=== PATIENT | female | born 1945 | race Caucasian/White ===

== ENCOUNTER 2020-10-07 11:39 | Inpatient (IN) | payer MEDICARE ==
[~2020-10-07] VITALS: Ht 170.2 cm; Wt 70.0 kg
[2020-10-07] MEDS ORDERED: AMLO5 PO (13:09)
[2020-10-07] MEDS ORDERED: BENA20 PO (13:10)
[2020-10-07] MEDS ORDERED: Flovent 44 mc10.6 GM INH (13:10)
[2020-10-07] MEDS ORDERED: ZOCOR20 MG PO (13:10)
[2020-10-07] MEDS ORDERED: ASPI81CH PO (13:11)
[2020-10-07 17:29] LABS: International Normalized Ratio 0.98; Prothrombin Time Results 10.6 Sec (9.7-11.5)
--- NOTE | 2020-10-07 20:59 | NUR ---
ADMISSION; PATIENT IS RECIEVED FROM ER VIA STRETCHER ABLE TP TRANSFER TO BED WITH SBA. HEPARIN GTT IS INFUSING AT 20.7 ML/HR. SIGHT IN R AC IS LEAKING. SIGHT REMOVED. HEPARIN INFUSING VIA LFA. NO COMPLAINTS OF PAIN. PATIENT IS ORIENTED TO ROOM AND CALL [facility]SON.
[2020-10-07] MEDS ORDERED: Voltaren100 GM TOP (22:58)
--- NOTE | 2020-10-08 03:00 | NUR ---
HEPARIN GTT: APPT WAS 122.8. PER PHARMACY HEPARIN WAS STOPPED FOR 1 HOUR AND RESTARTED AT 13 U/KG/HR = 17.9 ML/HR.
[2020-10-08 04:55] LABS: Hematocrit 41.6 % (33.0-51.0); Hemoglobin 13.7 g/dL (11.5-16.0); Mean Corpuscular HGB 31.9 pg (26.0-34.0); Mean Corpuscular HGB Conc 32.9 g/dL (31.5-36.5); Mean Corpuscular Volume 97 fL (80-100); Mean Platelet Volume 11.7 fL (9.1-12.4); Platelet Count 208 K/mm3 (150-400); RDW Standard Deviation 46.5 fL (35.1-46.3); White Blood Cell Count 4.71 K/mm3 (4.00-11.30)
--- NOTE | 2020-10-08 05:29 | NUR ---
SHIFT SUMMARY: PATIENT IS A&OX4, UP TO THE BATHROOM WITH STEADY GAIT. NO REPORTS OF PAIN. VSS, BP HAVE COME DOWN CONSIDERABLLY SINCE ER. HEPARIN GTT HAS BEEN DECREASED TO 13 U/KG/HR. IVF INFUSING PER MD ORDER.
[2020-10-08 05:34] LABS: Alanine Aminotransfer (ALT/SGP 21 U/L (12-78); Albumin, Blood 3.5 g/dL (3.4-5.0); Albumin/Globulin Ratio 1.3 (0.8-1.8); Alk Phos 87 U/L (50-136); Anion Gap 1 mmol/L (6-16); Aspartate Aminotrans (AST/SGOT 12 U/L (12-37); Bilirubin, Total 0.5 mg/dL (0.1-1.0); Blood Urea Nitrogen 14 mg/dL (8-24); Bun/Creatinine Ratio 20.1 (12.0-20.0); CO2, Blood 31 mmol/L (21-32); Calcium, Blood 9.5 mg/dL (8.5-10.1); Chloride, Blood 108 mmol/L (98-108); Globulin, Blood 2.7 g/dL (2.2-4.0); Glomerular Filtration Rate >60 (60-); Glucose, Blood 90 mg/dL (70-99); Potassium, Blood 4.3 mmol/L (3.5-5.5); Sodium, Blood 140 mmol/L (136-145); Total Protein, Blood 6.2 g/dL (6.4-8.2)
--- NOTE | 2020-10-08 06:41 | NUR ---
SHIFT SUMMARY: PATIENT IS A&OX4, REPORTING PAIN IN R LEG AND BACK 10/10. MEDICATED PER MAR WITH GOOD EFFECT, IV FENTANYL GIVEN X1 FOR BREAKTHROUGH PAIN. PATIENT REPORTED ITCHING ALL OVER. DR DENT IS NOTIFEID AND ORDER FOR BENADRYL Q 8 H PRN IS OBTAIONED AND MED IS GIVEN WITH FAIR EFFECT.
--- NOTE | 2020-10-08 22:53 | NUR ---
HEPARIN GTT: RESULT OF APPT AT 220 WAS 60.4, THERAPUTIC NO RATE CHANGE OR NEW ORDERS.
[2020-10-09 04:52] LABS: Hematocrit 43.3 % (33.0-51.0); Hemoglobin 14.3 g/dL (11.5-16.0); Mean Corpuscular HGB 31.6 pg (26.0-34.0); Mean Corpuscular Volume 96 fL (80-100); Mean Platelet Volume 11.3 fL (9.1-12.4); Platelet Count 230 K/mm3 (150-400); RDW Coefficient Variation 12.9 % (11.7-14.2); RDW Standard Deviation 45.9 fL (35.1-46.3); Red Blood Cell Count 4.53 M/mm3 (3.80-5.20); White Blood Cell Count 4.22 K/mm3 (4.00-11.30)
[2020-10-09 05:14] LABS: Albumin, Blood 3.7 g/dL (3.4-5.0); Anion Gap 3 mmol/L (6-16); Blood Urea Nitrogen 14 mg/dL (8-24); Bun/Creatinine Ratio 18.1 (12.0-20.0); CO2, Blood 28 mmol/L (21-32); Calcium, Blood 9.4 mg/dL (8.5-10.1); Chloride, Blood 108 mmol/L (98-108); Creatinine, Blood 0.77 mg/dL (0.40-1.00); Glomerular Filtration Rate >60 (60-); Glucose, Blood 106 mg/dL (70-99); Phosphorus, Blood 3.5 mg/dL (2.5-4.9); Potassium, Blood 4.2 mmol/L (3.5-5.5); Sodium, Blood 139 mmol/L (136-145)
--- NOTE | 2020-10-09 05:47 | NUR ---
SHIFT SUMMARY: PATIENT IS A&OX4, INDEPENDANT IN THE ROOM, VSS, NO REPORTS OF PAIN. HEPARIN GTT IS INFUSING AT 13U/KG/HR, THERAPUTIC X3. INDEPENDANT IN THE ROOM. REPORTED SLEEPING BETTER.
--- NOTE | 2020-10-09 11:30 | NUR ---
TRANSFER NOTE PT AxOx4. PLEASANT AND COOPERATIVE WITH CARE. TRANSFERRING TO [facility]CROB[facility]IC [facility] FOR THROMBECTOMY IN L JUGULAR VEIN. DR PINEDO IN FOR CONSULT THIS AM. PT EXPRESSED SOME CONCERN ABOUT FEELING LIKE PLANS WERE CHANGING REGARDING WHEN SHE WOULD HAVE HER PROCEDURE. THIS RN SPENT SOME TIME PROVIDING THERAPEUTIC COMMUNICATION WITH PATIENT. PT MORE RELAXED AFTER OUR CONVERSATION. VITALS REVIEWED. PT ON CONT HEPARIN DRIP, DOSE VERIFIED AT BEGINNING OF SHIFT, RUNNING AT 13U/KG/HR. PT INDEPENDENT IN THE ROOM. DENIES ANY PAIN. GAVE REPORT TO KIRK NEW IN PCU FOR POST OP TRANSFER. PT BELONGINGS TAKEN TO PCU ROOM -3. PT SAFELY ESCORTED OUT VIA WC WITH [facility] RN'S.
--- NOTE | 2020-10-09 13:30 | NUR ---
pt arrived to pcu via bed from [facility], she is awake, v.s. stable, left arm brachial access is swollen, and somewhat hard, pt states it is tender, will monitor, oriented to room layout and call system, call light in reach.
--- NOTE | 2020-10-09 13:49 | NUR ---
ARRIVAL FROM [facility] PT ARRIVED FROM [facility] AT APPROXIMATELY 1335, VS STABLE, PT ON RA. PT HAS TWO SITES, THE LEFT UPPER ARM AND LEFT CHEST BOTH NO DRAINAGE AND NO SIGN OF HEMATOMA
--- NOTE | 2020-10-09 14:00 | NUR ---
arm swelling is worse, and more firm, and more tender, tightly wrapped with coban for pressure, will monitor, instructed pt to call if pain worsens or finger tingle, call light in reach.
[2020-10-09 14:14] LABS: Hematocrit 41.2 % (33.0-51.0); Hemoglobin 13.3 g/dL (11.5-16.0)
--- NOTE | 2020-10-09 17:58 | NUR ---
pt doing well, arm swelling is down. she is eating dinner, no complaints or further needs. call light in reach.
[2020-10-10 03:55] LABS: BASOPHILS ABSOLUTE AUTO 0.04 K/mm3 (0.00-0.23); BASOPHILS PERCENT AUTO 1 % (0-2); EOSINOPHILS PERCENT AUTO 3 % (0-6); Hematocrit 38.4 % (33.0-51.0); Hemoglobin 12.5 g/dL (11.5-16.0); IMMATURE GRAN ABSOLUTE AUTO 0.02 K/mm3 (0.00-0.10); IMMATURE GRAN PERCENT AUTO 0 % (0-1); LYMPHOCYTES ABSOLUTE AUTO 1.09 K/mm3 (0.84-5.20); LYMPHOCYTES PERCENT AUTO 17 % (21-46); MONOCYTES ABSOLUTE AUTO 0.53 K/mm3 (0.16-1.47); MONOCYTES PERCENT AUTO 8 % (4-13); Mean Corpuscular HGB 31.6 pg (26.0-34.0); Mean Corpuscular HGB Conc 32.6 g/dL (31.5-36.5); Mean Corpuscular Volume 97 fL (80-100); Mean Platelet Volume 11.6 fL (9.1-12.4); NEUTROPHILS ABSOLUTE AUTO 4.53 K/mm3 (1.96-9.15); NEUTROPHILS PERCENT AUTO 71 % (41-73); Platelet Count 205 K/mm3 (150-400); RDW Coefficient Variation 12.9 % (11.7-14.2); Red Blood Cell Count 3.95 M/mm3 (3.80-5.20); White Blood Cell Count 6.41 K/mm3 (4.00-11.30)
[2020-10-10 04:19] LABS: Anion Gap 3 mmol/L (6-16); Blood Urea Nitrogen 11 mg/dL (8-24); Bun/Creatinine Ratio 14.5 (12.0-20.0); CO2, Blood 28 mmol/L (21-32); Chloride, Blood 106 mmol/L (98-108); Creatinine, Blood 0.76 mg/dL (0.40-1.00); Glomerular Filtration Rate >60 (60-); Glucose, Blood 88 mg/dL (70-99); Sodium, Blood 137 mmol/L (136-145)
--- NOTE | 2020-10-10 05:44 | NUR ---
PT HAD UNEVENTFUL NOC. INDEPENDENT IN ROOM. GAIT STEADY. UP TO VOID IN BR. EDEMA NOTED IN HER LEFT ARM. ELEVATED ON A PILLOW WHILE RESTING.KERLEX APPLIED TO LEFT BRACHIAL SITE. NO ADDITIONAL SWELLING IN NECK OR EXTREMITES. CALL LIGHT WITH IN REACH.
[2020-10-10] MEDS ORDERED: XARELTO15 MG PO (07:45)
[2020-10-10] MEDS ORDERED: XARELTO20 MG PO (07:47)
--- NOTE | 2020-10-10 08:00 | NUR ---
pt laying in bed awake a/ox3, pleasant and cooperative with care, follows commands well, denies complaints, states she slept well last night, lungs are clear t/o, resp even and unlabored, no cough noted, hrr, tele in place running sr per monitor, see strip, edema noted to left arm around elbow, is soft, not as swollen as yesterday, dressing c/d/i, also has an axillary dressing that is coming off, this was replaced with a bandaid, will be discharged today, Dr. Bautista in to see her, will be going home on samantha kraft, up ad lisa in room, gate noted to be steady, call light in reach.
--- NOTE | 2020-10-10 10:36 | NUR ---
pt is being discharged to home, went over discharge instructions with her, she verbalized understanding, phone for medical records given so she can obtain her records for her provider in [facility]. iv removed intact by student nurse, she has her hard script for xarelto to take home, dosages she needs now have been called into her pharmacy chain in [place], will be taken out via wheelchair when ready.
[2020-10-16 17:09] LABS: ACT. PRT C RESIST W/FV DEFIC. 2.7 ratio (.); DRVVT SCREEN SECONDS 38.3 sec (.); FACTOR VIII ACTIVITY 111 % (.); HEXAGONAL PHOSPHOLIPID NEUTRAL 0 sec (.); HOMOCYSTEINE 8.1 umol/L (.); PRT C ACTIVITY (CHROMOGENIC) 111 % (.)
== END 2020-10-10 11:00 | disposition home or self-care (01) | DRG 271 ==
LOC: ER 11:39 → PCU 17:46 → MEDS 17:46 → PCU 10-09 11:31
PROVIDERS: Emergency Medicine; Internal Medicine; Nurse Practitioner Acute Care; Radiology Diagnostic Radiology; ADMIT Hospitalist
PROC: 05C63ZZ Extirpation of Matter from Left Subclavian Vein, Percutaneous Approach (ICD-10-PCS; principal; 2020-10-09)
PROC: 05C43ZZ Extirpation of Matter from Left Innominate Vein, Percutaneous Approach (ICD-10-PCS; 2020-10-09)
PROC: 02CV3ZZ Extirpation of Matter from Superior Vena Cava, Percutaneous Approach (ICD-10-PCS; 2020-10-09)
PROC: 05CN3ZZ Extirpation of Matter from Left Internal Jugular Vein, Percutaneous Approach (ICD-10-PCS; 2020-10-09)
PROC: 03723ZZ Dilation of Innominate Artery, Percutaneous Approach (ICD-10-PCS; 2020-10-09)
PROC: B51 Imaging, Veins, Fluoroscopy (ICD-10-PCS; 2020-10-09)
PROC: B51NYZZ Fluoroscopy of Left Upper Extremity Veins using Other Contrast (ICD-10-PCS; 2020-10-09)
PROC: B518YZZ Fluoroscopy of Superior Vena Cava using Other Contrast (ICD-10-PCS; 2020-10-09)
PROC: B517YZZ Fluoroscopy of Left Subclavian Vein using Other Contrast (ICD-10-PCS; 2020-10-09)
DX: I82.B12 Acute embolism and thrombosis of left subclavian vein (principal); Q21.1 Atrial septal defect; I10 Essential (primary) hypertension; E78.5 Hyperlipidemia, unspecified; I34.0 Nonrheumatic mitral (valve) insufficiency; Z98.890 Other specified postprocedural states; Z79.82 Long term (current) use of aspirin; Z79.899 Other long term (current) drug therapy; I16.0 Hypertensive urgency; I82.210 Acute embolism and thrombosis of superior vena cava; I82.C12 Acute embolism and thrombosis of left internal jugular vein; I82.290 Acute embolism and thrombosis of other thoracic veins
CPT/HCPCS: 36415; 37187; 37248; 75820; 75827; 76536; 76937; 80048; 80053; 80069; 81240; 83090; 85014; 85018; 85025; 85027; 85240; 85300; 85303; 85306; 85307; 85610; 85613; 85730; 85732; 86146; 86147; 93306; 93931; 93971; 94640; 94760; 96365; 96366; 99152; 99153; 99285-25; A9270; C1725; C1753; C1757; C1769; C1887; C1894; J1644; J2250; J2405; J3010; J7030; J7050; Q9967